=== PATIENT | male | born 1955 | race Caucasian/White ===

== ENCOUNTER 2016-12-15 16:04 | Emergency (ER) | payer OTHER ==
[2016-12-15] MEDS ORDERED: Diphtheria,Pertussis(Acell),Tetanus Vaccine 0.5 ML SDV IM ONE (16:25)
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
[2016-12-15 17:49] VITALS: BP 177/86
== END 2016-12-15 17:40 ==
LOC: JP.ED 16:04
DX: S06.6X0A Traumatic subarachnoid hemorrhage without loss of consciousness, initial encounter (principal); S06.5X0A Traumatic subdural hemorrhage without loss of consciousness, initial encounter; S00.81XA Abrasion of other part of head, initial encounter; V86.92XA Unspecified occupant of snowmobile injured in nontraffic accident, initial encounter; Y93.29 Activity, other involving ice and snow; Y92.9 Unspecified place or not applicable; J34.89 Other specified disorders of nose and nasal sinuses
CPT/HCPCS: 36415; 70450; 72125; 80053; 82962; 84484; 85025; 90471; 93005; 99284-25